=== PATIENT | female | born 1980 | race African-American/Black ===

== ENCOUNTER 2017-10-19 09:28 | Day surgery (SDC) | payer OTHER ==
[2017-10-19] VITALS (9 sets, daily range): BP systolic 107–123; BP diastolic 67–88
[~2017-10-19] VITALS: Ht 160 cm; Wt 99.8 kg
[~2017-10-19 09:28] MED LIST: ceFAZolin 1gm in D5W 55ml IVPB ONE; celeBREX 200mg Cap **SURGERY PATIENTS ONLY ORAL ONE; oxyCONTIN 20mg tab ORAL ONE
[2017-10-19] MEDS ORDERED: NKM (10:01)
[2017-10-19] MEDS ORDERED: Ropivacaine 5mg/ml Vial 30ml INJ ONE (10:34)
[2017-10-19] MEDS ORDERED: Bupivacaine 0.5% Inj 30 ml vial INJ ONE (11:09)
[2017-10-19] MEDS ORDERED: Kenalog-40 1ml Vial ONE (11:10)
[2017-10-19] MEDS ORDERED: Ketorolac 30mg Inj ONE ×2 (11:10→12:00)
[2017-10-19] MEDS ORDERED: Lidocaine 1% 10mg/ml/Epi 0.005mg/ml 30ml vial INJ ONE (11:10)
[2017-10-19] MEDS ORDERED: Morphine Sulfate PF 0 ML ONE (11:10)
[2017-10-19] MEDS ORDERED: Propofol 200mg/20ml IV ONE (11:20)
[2017-10-19] MEDS ORDERED: Bupivacaine 0.25% Inj 30ml INJ ONE (11:40)
[2017-10-19] MEDS ORDERED: fentaNYL 100 mcg/2 mL IV ONE (12:00)
[2017-10-19] MEDS ORDERED: NS Irrig 1000ml ONE (12:00)
[2017-10-19] MEDS ORDERED: Sterile Water Irrig 1000ml IRRIG ONE (12:00)
[2017-10-19] MEDS ORDERED: Midazolam 2mg/2ml Inj ONE (12:00)
[2017-10-19] MEDS ORDERED: NS Irrig 4000ml IRRIG ONE (12:20)
--- NOTE | 2017-10-19 13:08 | Anethesia Preoperative Eval ---
Anesthesia Pre-op PMH/ROS General Date of Evaluation: Oct 19, 2017 Time of Evaluation: 11:48 Anesthesiologist: Alexandra ASA Score: ASA 2 Mallampati Score Class I : Soft palate, uvula, fauces, pillars visible Class II: Soft palate, uvula, fauces visible Class III: Soft palate, base of uvula visible Class IV: Only hard plate visible Mallampati Classification: Class III Surgeon: Ariel Diagnosis: R ankle pain Surgical Procedure: R ankle scope Anesthesia History: none Family History: no anesthesia problems Allergies: Coded Allergies: No Known Allergies (Unverified , 10/19/17) Medications: see eMAR Past Medical History Cardiovascular: Denies: HTN, CAD, [place], valve dz, arrhythmia, other Pulmonary: Reports: JOHN PAUL - possible, Denies: asthma, COPD, other Gastrointestinal/Genitourinary: Reports: GERD - mild, Denies: CRI, ESRD, other Neurologic/Psychiatric: Denies: dementia, CVA, depression/anxiety, TIA, other Endocrine: Denies: DM, hypothyroidism, steroids, other HEENT: Denies: cataract (L), cataract (R), glaucoma, [place] (L), [place] (R), other Hematology/Immune: Denies: anemia, DVT, bleeding disorder, other Musculoskeletal/Integumentary: Denies: OA, RA, DJD, DDD, edema, other Other: obesity PMH Narrative: as above, persistent R ankle pain after an injury PSxH Narrative: none Anesthesia Pre-op Phys. Exam Physician Exam Last Vital Signs Date Time Temp Pulse Resp B/P (MAP) Pulse Ox O2 Delivery O2 Flow Rate FiO2 10/19/17 09:55 98.6 79 19 115/72 99 Room Air 98.6 Constitutional: NAD Neurologic: CN 2-12 intact Cardiovascular: RRR, no M/R/G Respiratory: other - diminished breath sounds Gastrointestinal: other - morbid obesity Airway Exam Mallampati Score: Class II MO: full Neck: short ROM: full Teeth: intact Dentures: no upper, no lower Anesthesia Pre-op A/P Labs see chart Urine Test Test 10/19/17 09:40 Urine HCG, Qualitative Negative (NEGATIVE) Risk Assessment & Plan Assessment: ASA 2 Plan: GA with LMA R popliteal fossa block for p/operative pain control Status Change Before Surgery: No Pre-Antibiotics Drug: Ancef 2 gr. Given Within 1 Hr of Incision: Yes Time Given: 11:28 FUENTES REEVES M.D. Oct 19, 2017 13:08
[2017-10-19] MEDS ORDERED: LR 1000ml 1,000 ML IVLG SCH (13:09)
[2017-10-19] MEDS ORDERED: DiphenhydrAMINE 50mg/ml Inj IVP PRN (13:15)
[2017-10-19] MEDS ORDERED: Hydromorphone 0.5mg/0.5ml inj IVP PRN (13:15)
[2017-10-19] MEDS ORDERED: Midazolam 2mg/2ml Inj IVP PRN (13:15)
[2017-10-19] MEDS ORDERED: Ketorolac 30mg Inj IV PRN (13:15)
--- NOTE | 2017-10-19 13:20 | Operative Note - PDOC ---
Operative Note Operative Note Pre-op Diagnosis: right ankle interal impigement Procedure: right ankle arthroscopy synocetomy Post-op Diagnosis: same as pre-op plus Operative Findings: consistent w/pre-op dx studies Anesthesia: MAC Specimen: none Complications: none Condition: stable Estimated Blood Loss: none Implant(s) used?: No HARPER VALERO Oct 19, 2017 13:20
--- NOTE | 2017-10-19 13:20 | Pre-Procedure Note/Attestation ---
Pre-Procedure Note/Attestation Complete Prior to Procedure Planned Procedure: right Procedure Narrative: ankle arthroscopy, possible synovectomy Indications for Procedure Pre-Operative Diagnosis: right ankle interal impigement Attestation I attest that I discussed the nature of the procedure; its benefits; risks and complications; and alternatives (and the risks and benefits of such alternatives ), prior to the procedure, with the patient (or the patient's legal credit resolution representative). I attest that, if there was a reasonable possibility of needing a blood transfusion, the patient (or the patient's legal credit resolution representative) was given the [facility] standardized written summary, pursuant to the [place] Blood Safety Act ([place] Health and Safety Code # 1645, as amended). I attest that I re-evaluated the patient just prior to the surgery and that there has been no change in the patient's H&P, except as documented below: HARPER VALERO Oct 19, 2017 13:20
--- NOTE | 2017-10-19 13:30 | Immediate Post-Op Evaluation ---
Immediate Post-Op Evalulation Immediate Post-Op Evalulation Procedure: R ankle arthroscopy with debridement Date of Evaluation: Oct 19, 2017 Time of Evaluation: 13:28 IV Fluids: 800 Blood Products: none Estimated Blood Loss: min Urinary Output: none Blood Pressure Systolic: 116 Blood Pressure Diastolic: 74 Pulse Rate: 68 Respiratory Rate: 20 O2 Sat by Pulse Oximetry: 98 Temperature (Fahrenheit): 97.6 Pain Score (1-10): 2 Nausea: No Vomiting: No Complications none Patient Status: reacts, patent, none Hydration Status: adequate FUENTES REEVES M.D. Oct 19, 2017 13:30
--- NOTE | 2017-10-19 13:38 | 48 Hour Post Anesthesia Eval ---
Post Anesthesia Evaluation Procedure: R ankle arthroscopy with debridement Date of Evaluation: Oct 19, 2017 Time of Evaluation: 13:36 Blood Pressure Systolic: 124 0: 68 Pulse Rate: 74 Respiratory Rate: 20 Temperature (Fahrenheit): 98.0 O2 Sat by Pulse Oximetry: 99 Airway: patent Nausea: No Vomiting: No Pain Intensity: 2 Hydration Status: adequate Cardiopulmonary Status: stable Mental Status/LOC: patient returned to baseline Follow-up Care/Observations: n/a Post-Anesthesia Complications: none Follow-up care needed: ready to discharge FUENTES REEVES M.D. Oct 19, 2017 13:38
[2017-10-19] MEDS ORDERED: D5 1/2NS 1,000 ML IV SCH (20:01)
[2017-10-19] MEDS ORDERED: HYDROmorphone 1mg/ml Carpuject SUBQ PRN (20:01)
[2017-10-19] MEDS ORDERED: Tylenol #3 tab (300mg/30mg) ORAL PRN (20:01)
[2017-10-19] MEDS ORDERED: Norco 5mg/325mg tab ORAL PRN (20:01)
--- NOTE | 2017-10-19 22:15 | Operative Note - Dictated ---
DATE OF OPERATION: 10/19/2017 PREOPERATIVE DIAGNOSES: 1. Right ankle sprain. 2. Right ankle internal derangement with possible chondral versus soft tissue impingement. POSTOPERATIVE DIAGNOSES: 1. Right ankle sprain. 2. Right ankle internal derangement with possible chondral versus soft tissue impingement. PROCEDURES: 1. Right ankle diagnostic arthroscopy. 2. Right ankle arthroscopic synovectomy. SURGEON: Андрей George M.D. ANESTHESIA: MAC. INDICATION FOR PROCEDURE: The patient is a pleasant female, who has had a sprain of the right ankle and continued to have instability and pain. She had MRI, which showed some partial tears of the lateral ligament complex. It was felt that she probably has evidence of impingement or possible chondral damage that could explain her continued issues. After failing conservative treatment, she elected to undergo right ankle diagnostic arthroscopy and possible synovectomy. Risks, limitations, expectations, and complications of procedure were discussed in detail. All questions addressed. She was also made aware that once under anesthesia, there was no gross instability with lateral ligament testing, then she will be a candidate for an open lateral ligament reconstruction. Risks, limitations, expectations, and complications of procedure including continued pain, need for future surgery, risk of anesthesia, medical complications, DVT, PE, and mortality risks were discussed. DESCRIPTION OF PROCEDURE: An informed consent was obtained. The patient was brought to the operating room. The patient was placed under monitored anesthesia control. The patient had a popliteal block placed. The right leg was prepped and draped in a sterile manner. Time-out was performed. The ankle mortise was marked out including the superficial peroneal nerve. The right leg was then placed in traction. The anterior medial working portal was established using a 25-gauge needle. The skin was then incised. Blunt dissection through the capsule was performed. Camera was then placed into the ankle joint. There was a significant hypertrophic synovial tissue in the lateral compartment of the ankle. Using inside-out localization, a 25-gauge needle was then placed for lateral working portal. Once the skin was incised, blunt dissection down to the capsule was performed. Care was taken to avoid the common and superficial peroneal nerves. A probe was then placed and there was significant hypertrophic synovial tissue in the lateral compartment making it difficult to visualize. At this point, a shaver was then placed in the right ankle joint. Complete synovectomy in the anterior lateral aspect of the ankle was performed. Once this was done, I could better visualize the lateral gutter, which was free of any loose bodies. There was soft tissue that was impinging in the lateral gutter and this was debrided down to the point of no soft tissue impingement. There was no chondral damage. The camera was repositioned in the lateral working portal and a synovectomy extending into the medial gutter was performed. Once this was completed, all the instruments removed. Portal sites were closed using Steri-Strips and a compression dressing. A posterior splint was applied. The patient was awoken and taken to recovery room with stable vital signs. ESTIMATED BLOOD LOSS: None. COMPLICATIONS: None. SPECIMENS: None. IMPLANTS: None. Андрей George M.D. DR: THANG JOB#: [id number] CC: MARTINA
== END 2017-10-19 15:00 | disposition home or self-care (01) ==
LOC: SUR 09:28
DX: S93.401A Sprain of unspecified ligament of right ankle, initial encounter (principal); M25.871 Other specified joint disorders, right ankle and foot; K21.9 Gastro-esophageal reflux disease without esophagitis; E66.01 Morbid (severe) obesity due to excess calories; Z68.39 Body mass index [BMI] 39.0-39.9, adult; W17.2XXA Fall into hole, initial encounter; Y93.9 Activity, unspecified; Y92.009 Unspecified place in unspecified non-institutional (private) residence as the place of occurrence of the external cause
CPT/HCPCS: 29895; 81025; J0690; J1885; J2250; J2405; J2795; J3010; J3301; J3490; 94003; 94150